=== PATIENT | female | born 1975 | race Two or more races ===

== ENCOUNTER 2018-05-04 10:28 | Emergency (ER) | payer OTHER ==
[2018-05-04] MEDS ORDERED: MAG HYDROX/AL HYDROX/SIMETH SUSP 30 ML UDCUP PO ONE (10:53)
[2018-05-04] MEDS ORDERED: ASPIRIN 81 MG TABLET, CHEWABLE PO ONE (10:53)
[2018-05-04] MEDS ORDERED: PANTOPRAZOLE SODIUM 40 MG VIAL IV ONE (10:53)
[2018-05-04] MEDS ORDERED: LIDOCAINE 2% VISCOUS SOLN 20 ML UDCUP PO ONE (10:53)
[2018-05-04] MEDS ORDERED: METOCLOPRAMIDE HCL ORAL SOLN 10 MG/10 ML UDCUP PO ONE (10:53)
--- NOTE | 2018-05-04 10:54 | ER Document Report ---
ED Medical Screen (RME) - General Chief Complaint: Chest Pain > 30 Stated Complaint: CHEST PAIN Time Seen by Provider: 05/04/18 10:50 Notes: 43 years old female who was put on prednisone and ibuprofen 800 mg for lower back pain for the last few days presents with sharp epigastric pain radiating to the back as well as bilaterally over the shoulders. As well as left chest wall. Denies any nausea vomiting palpitation or diaphoresis. Examination epigastric tenderness as well as chest wall tenderness noted. TRAVEL OUTSIDE OF THE [place] IN LAST 30 DAYS: No - Related Data Allergies/Adverse Reactions: No Known Allergies Allergy (Verified 05/04/18 10:47) Physical Exam - Vital signs Vitals: Temp Pulse Resp BP Pulse Ox 98.5 F 78 16 136/80 H 100 05/04/18 10:39 05/04/18 10:39 05/04/18 10:39 05/04/18 10:39 05/04/18 10:39 Course - Vital Signs Vital signs: Temp Pulse Resp BP Pulse Ox 98.5 F 78 16 136/80 H 100 05/04/18 10:39 05/04/18 10:39 05/04/18 10:39 05/04/18 10:39 05/04/18 10:39 Doctor's Discharge - Discharge Referrals: BRANDON JACOME PA [Primary Care Provider] - Follow up as needed
--- NOTE | 2018-05-04 11:36 | RADIOLOGY REPORT (SQ) ---
EXAM DESCRIPTION: CHEST SINGLE VIEW COMPLETED DATE/TIME: 05/04/2018 11:21 am REASON FOR STUDY: Chest pain COMPARISON: None. EXAM PARAMETERS: NUMBER OF VIEWS: One view. TECHNIQUE: Single frontal radiographic view of the chest acquired. RADIATION DOSE: NA LIMITATIONS: None. FINDINGS: LUNGS AND PLEURA: No opacities, masses or pneumothorax. No pleural effusion. MEDIASTINUM AND HILAR STRUCTURES: No masses. Contour normal. HEART AND VASCULAR STRUCTURES: Heart normal in size. Normal vasculature. BONES: No acute findings. HARDWARE: None in the chest. OTHER: No other significant finding. IMPRESSION: NO ACUTE RADIOGRAPHIC FINDING IN THE CHEST. TECHNICAL DOCUMENTATION: JOB ID: [id number] [employer]- All Rights Reserved Reading location - IP/workstation name: [email or web address]
--- NOTE | 2018-05-04 12:02 | EKG REPORT ---
SEVERITY:- NORMAL ECG - SINUS RHYTHM : Confirmed by: Dean Allen 04-May-2018 12:01:59
[2018-05-04 12:04] LABS: ABSOLUTE BASOPHILS # (AUTO) 0.1 10^3/uL (0.0-0.2); ABSOLUTE EOSINOPHILS # (AUTO) 0.1 10^3/uL (0.0-0.6); ABSOLUTE LYMPHOCYTES (AUTO) 2.9 10^3/uL (0.5-4.7); ABSOLUTE NEUT (AUTO) 6.1 10^3/uL (1.7-8.2); BASOPHILS % (AUTO) 0.6 % (0-2); HEMATOCRIT 40.8 % (36.0-47.0); LYMPHOCYTES % (AUTO) 28.5 % (13-45); MEAN CORPUSCULAR HEMOGLOBIN 28.8 pg (27.0-33.4); MEAN CORPUSCULAR HGB CONC 34.4 g/dL (32.0-36.0); MEAN CORPUSCULAR VOLUME 84 fl (80-97); PLATELET COUNT 216 10^3/uL (150-450); RED BLOOD COUNT 4.88 10^6/uL (3.72-5.28); RED CELL DISTRIBUTION WIDTH 13.2 % (11.5-14.0); SEGMENTED NEUTROPHILS % (AUTO) 59.9 % (42-78); TOTAL CELLS COUNTED % (AUTO) 100 %; WHITE BLOOD COUNT 10.2 10^3/uL (4.0-10.5)
[2018-05-04 12:25] LABS: ALANINE AMINOTRANSFERASE 17 U/L (9-52); ALBUMIN 4.2 g/dL (3.5-5.0); ALKALINE PHOSPHATASE 67 U/L (38-126); ANION GAP 11 (5-19); ASPARTATE AMINO TRANSFERASE 18 U/L (14-36); BILIRUBIN,DIRECT 0.2 mg/dL (0.0-0.4); BILIRUBIN,TOTAL 0.7 mg/dL (0.2-1.3); BLOOD UREA NITROGEN 26 mg/dL (7-20); CALCIUM 9.3 mg/dL (8.4-10.2); CARBON DIOXIDE 30 mmol/L (22-30); CHLORIDE 102 mmol/L (98-107); CREATINE KINASE 26 U/L (30-135); GLUCOSE 107 mg/dL (75-110); POTASSIUM 4.3 mmol/L (3.6-5.0); SODIUM 142.5 mmol/L (137-145); TOTAL PROTEIN 7.4 g/dL (6.3-8.2)
[2018-05-04 12:37] LABS: CREATINE KINASE MB 0.28 ng/mL (<4.55)
[2018-05-04 12:39] LABS: TROPONIN I < 0.012 ng/mL
[2018-05-04] MEDS ORDERED: ACETAMINOPHEN 325 MG TABLET PO ONE (13:08)
--- NOTE | 2018-05-04 13:31 | ER Document Report ---
ED Cardiac - General Chief Complaint: Chest Pain > 30 Stated Complaint: CHEST PAIN Time Seen by Provider: 05/04/18 10:50 Mode of Arrival: Ambulatory Information source: Patient Notes: Patient is an otherwise healthy 43-year-old female who presents to the emergency department today with complaint of chest pain. She reports that at about 3:00 this morning she woke up and felt a squeezing in the left side of her chest that radiates to the left shoulder. She reports that she thought she was having acid reflux symptoms however they have persisted through the day and this pain feels different than her usual acid reflux symptoms. She rates the pain 4/5 and reports associated nausea. She denies any shortness of breath vomiting or diaphoresis. She states that her primary care provider is located in [facility]. She denies ever having an echocardiogram or stress test done. Past medical history includes acid reflux. Past surgical history of cholecystectomy, lumpectomy and orthopedic surgery. Patient is a non -smoker but does report occasional EtOH use, denies any illicit substance use. TRAVEL OUTSIDE OF THE [place] IN LAST 30 DAYS: No - Related Data Allergies/Adverse Reactions: No Known Allergies Allergy (Verified 05/04/18 10:47) Past Medical History - General Information source: Patient - Social History Smoking Status: Never Smoker Chew tobacco use (# tins/day): No Frequency of alcohol use: Occasional Drug Abuse: None Lives with: Spouse/Significant other Family History: Reviewed & Not Pertinent Patient has suicidal ideation: No Patient has homicidal ideation: No Renal/ Medical History: Denies: Hx Peritoneal Dialysis GI Medical History: Reports: Hx Gastroesophageal Reflux Disease Psychiatric Medical History: Reports: Hx Depression Past Surgical History: Reports: Hx Breast Surgery - lumpectomy, Hx Cholecystectomy, Hx Tubal Ligation Physical Exam - Vital signs Vitals: Temp Pulse Resp BP Pulse Ox 98.5 F 78 16 136/80 H 100 05/04/18 10:39 05/04/18 10:39 05/04/18 10:39 05/04/18 10:39 05/04/18 10:39 - Notes Notes: PHYSICAL EXAMINATION: GENERAL: Well-appearing, well-nourished and in no acute distress. HEAD: Atraumatic, normocephalic. EYES: Pupils equal round and reactive to light, extraocular movements intact, conjunctiva are normal. ENT: Nares patent, oropharynx clear without exudates. Moist mucous membranes. NECK: Normal range of motion, supple without lymphadenopathy LUNGS: Breath sounds clear to auscultation bilaterally and equal. No wheezes rales or rhonchi. HEART: Regular rate and rhythm without murmurs ABDOMEN: Soft, nontender, nondistended abdomen. No guarding, no rebound. No masses appreciated. Female : No CVA tenderness. Musculoskeletal: Normal range of motion, no pitting or edema. No cyanosis. Reproducible pain to the left chest wall with palpation to the midclavicular line. NEUROLOGICAL: Cranial nerves grossly intact. Normal speech, normal gait. Normal sensory, motor exams PSYCH: Normal mood, normal affect. SKIN: Warm, Dry, normal turgor, no rashes or lesions noted. Course - Re-evaluation Re-evalutation: Presentation of chest pain in an otherwise well appearing patient. Low clinical suspicion for ACS given clinical history, exam, EKG without ST elevations or depressions, and negative initial troponin. HEART score less than or equal to 3. PE also seems unlikely given clinical history, absence of tachycardia or dyspnea. Patient is PERC criteria negative. CXR without evidence of pneumothorax or pneumonia. No widened mediastinum. Aortic dissection also seems unlikely given history, symmetric pulses, CXR, and vitals. HEART Score: 3 History 1 ECG 0 Age 1 Risk Factors 1 Troponin 0 Total: Chest pain in a patient without evidence of cardiac or other serious etiology on workup today. I discussed with patient that, based on their age, risk factors and emergency department testing today, the likelihood that their symptoms are related to a heart attack is very low (estimated risk of heart attack or over the next 30 days of less than 1%). The patient demonstrates decision making capacity and has verbalized an understanding of these risks to me. Based on this, the patient has chosen to follow-up as an outpatient. Usual chest pain return precautions reviewed. The patient states understanding and agreement with this plan. - Vital Signs Vital signs: Temp Pulse Resp BP Pulse Ox 98.5 F 78 15 116/69 98 05/04/18 10:39 05/04/18 10:39 05/04/18 16:27 05/04/18 16:27 05/04/18 16:27 - Laboratory Result Diagrams: 05/04/18 11:55 05/04/18 11:55 Laboratory results interpreted by me: 05/04/18 11:55 BUN 26 H Creatine Kinase 26 L Discharge - Discharge Clinical Impression: Chest pain Qualifiers: Chest pain type: unspecified Qualified Code(s): R07.9 - Chest pain, unspecified Condition: Stable Disposition: HOME, SELF-CARE Additional Instructions: You were seen today for chest pain. The exact cause of your pain is unclear. However, based on your cardiac enzyme testing, chest x-ray, and EKG it does not appear that it is from an immediately life-threatening cause at this time. Although your testing here is normal is critical that you follow-up with your primary care physician at [facility] for continued evaluation of this chest pain and possible stress testing. I recommended you see your physician within the next 24-48 hours to be evaluated for consideration of a stress test. Please return to emergency department immediately if you have worsening of your chest pain, shortness of breath, vomiting, become unable to exert yourself due to pain or difficulty breathing, you pass out, or have any pain that radiates into your arms, jaw, or back. Please also return if you have any additional symptoms that are concerning to you. Forms: Return to Work Referrals: BRANDON JACOME PA [NO LOCAL MD] - Follow up as needed
[2018-05-04 16:43] VITALS: BP 116/69
== END 2018-05-04 16:49 | disposition home or self-care (01) ==
LOC: ER 10:28
DX: R07.9 Chest pain, unspecified (principal); R11.0 Nausea
CPT/HCPCS: 93005; 99285; 36415; 82553; 82550; 85025; 80053; 84484; 71045; 93010; J3490; S0164